=== PATIENT | male | born 1985 | race Two or more races ===

== ENCOUNTER 2017-08-14 11:34 | Emergency (ER) | payer OTHER ==
[~2017-08-14] VITALS: Ht 170.2 cm; Wt 89.5 kg
[2017-08-14] MEDS ORDERED: SODIUM CHLORIDE 0.9% 1,000ML IVBOLUS ONE (12:30)
[2017-08-14] MEDS ORDERED: DEXAMETHASONE 4 MG/ML, 1ML IVPush ONE (12:30)
[2017-08-14] MEDS ORDERED: AMPICILLIN/SULBACTAM 3 GM in SODIUM CHLORIDE 0.9% 100 ML IV ONE (12:30)
[2017-08-14] MEDS ORDERED: LIDOCAINE 1%, 10ML INFIL ONE (12:30)
[2017-08-14] MEDS ORDERED: BENZOCAINE AEROSOL SPRAY 20%, 60ML TP ONE (12:30)
[2017-08-14] MEDS ORDERED: ACETAMINOPHEN 325 MG TABLET PO ONE (12:30)
[2017-08-14] MEDS ORDERED: LIDOCAINE 1%, 20ML ONE (12:44)
[2017-08-14] MEDS ORDERED: ACETAMINOPHEN 325 MG TABLET ONE (12:44)
[2017-08-14] MEDS ORDERED: DEXAMETHASONE 4 MG/ML, 5ML ONE (12:44)
[2017-08-14] MEDS ORDERED: INSULIN REGULAR 100 UNITS/ML, 3ML VIAL ONE (12:44)
[2017-08-14] MEDS ORDERED: BENZOCAINE AEROSOL SPRAY 20%, 60ML ONE (12:44)
[2017-08-14 15:22] VITALS: BP 134/70
== END 2017-08-14 15:24 | disposition home or self-care (01) ==
LOC: ED 14:00
DX: J36 Peritonsillar abscess (principal)
CPT/HCPCS: 42700; 96361; 96365; 96375; 99284; J0295; J1100; J3490; J7030

== ENCOUNTER → 2017-11-30 | Outpatient (CLI) | payer OTHER | LOC: CFH 16:05 | PROVIDERS: ATTEND Family Medicine | DX: R07.9 Chest pain, unspecified (principal); W19.XXXA Unspecified fall, initial encounter ==